=== PATIENT | male | born 1945 | race Caucasian/White ===

== ENCOUNTER 2022-12-05 09:00 | Outpatient (RCR) | payer MEDICARE, SELFPAY ==
--- NOTE | 2022-11-14 12:49 | PT.OPEX ---
PT [place] Outpatient Eval PT [facility] Outpatient Eval Start: 11/14/22 08:47 Freq: Status: Active Protocol: Document 11/14/22 08:48 ENM (Rec: 11/14/22 11:51 ENM [id number]) E-signed By Abigail Dye, DPT Physical Therapy Outpatient Evaluation Insurance Information Recert Due Date 02/06/23 Insurance Name Medicare B Medical Diagnosis unilateral primary osteoarthritis, left knee Treating Diagnosis left knee pain, decreased knee flexion, decreased ankle ROM, decreased quad and glute strength, impaired squat Referring MD Leon Subjective Subjective Patient presents to PT for complaint of left knee pain that has been present for 4 month. Had a cortisone injection which helped to relieve the pains for a bit but they came back. A week ago he started to wear a knee brace which has provided some pain relief. Most aggravating activity is going down the stairs. He is able to relieve some of the pains changing positions of the knee. Squatting and getting down into his bathtub is very painful. He is not able to bend his left knee enough to get his pants on. 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 Does wear custom inserts due to history of flat feet. PMHx: back surgery L4/5 Imaging: joint space narrowing peripheral osteophyte formation consistent with mild tricompartmental osteoarthritis. No acute osseous abnormalities. 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 Objective Other/Pertinent Objective ROM L knee 0-2-135 no pain R knee 0-2-135 hip flexion WNL B IR 25% limited B ER 10% limited B ankle DF closed chain 11 cm from wall L 4 R 4 PF L 63 R 62 strength: 30s STS 14 reps with soreness in L knee after 5x STS 10.18s hip flexors 4/5 B knee extensors L 4-/5 R 4/5 hip abductor 4-/5 B hip extensors 4-/5 B palpation/joint mobility: - for pains palpation along knee joint gait/balance: SLS able to hold on R for >10s , L able to hold 5-7s before LOB pressure felt in knee special tests: flat feet bilaterally less than 1 finger tip support with drop of navicular B squat patient leaning off L side to perform with B knee valgus present + for pain Elys limited on L side compared to R - for pain with varus or valgus stressing of the knee Assessment Assessment/Impression Patient is a 77 year old male presenting with 4 month history of left knee pain. Their primary complaint is of pain in the left knee with going down stairs, squatting and getting into the tub to take a bath. He has had some relief of symptoms with a cortisone injection as well as use of a knee brace but pain have not fully gone away. Upon assessment patients concordant pains brought on with repeated sit to stands, squatting and SLS. He has no pain with knee ROM or overpressure. Weakness noted in hip extensors and abductors with MMT. He has minimal arch support which contributes to knee valgus with squatting. No tenderness to palpation of knee joint line musculature. Saúl would greatly benefit from skilled PT to address impairments stated above in order to perform all functional mobility and recreational activities without significant discomfort or difficulty. Primary Functional Limitations squatting, going down stairs, bending to get into tub, putting on pants in standing Plan of Care Rehabilitation Potential Good Physical Therapy Goals In 6-8 visits: 1. Patient will be IND with HEP and self management of symptoms 2. Patient will be able to perform x5 squats with good form and no knee pain to demonstrate improvements in LE strength for getting in/out of tub 3. Patient will be able to descend the stairs with 3/10 or less knee pain in order to navigate home environment 4. Patient will improve L SLS to >10s to improve ability for putting on pants in standing Coordination/Communication With Referral Source Treatment Plan/Direct Interventions Gait Training,Ice/Cold/ Vasopneumatic,Joint Mobilization,Manual Therapy, Neuromuscular Re-ed,Self-Care/ Home Management,Therapeutic Activities,Therapeutic Exercises Frequency/Duration 1x a week for 7 weeks, as needed for 2 visits Patient Will Be Discharged From Therapy Completion of LTG(s), Independent w/HEP Evaluation Billing Untimed Code Treatment Minutes 35 Complexity Low Certification Information Initial Certification Date 11/14/22 Ending Certification Date 02/06/23 Provider Signature Shows Agreement With POC & Medical Necessity Physician Signature & Date Requested Please Sign/Date Here Physician Comment/Change : Physician NPI Number #
== END 2023-01-27 14:28 | disposition home or self-care (01) ==
PROVIDERS: PCP Family Medicine; Visit Provider Orthopaedic Surgery
DX: M17.12 Unilateral primary osteoarthritis, left knee (principal); M25.562 Pain in left knee; Z51.89 Encounter for other specified aftercare
CPT/HCPCS: 97110; 97161

== ENCOUNTER 2024-10-28 09:45 | Outpatient (RCR) | payer MEDICARE, SELFPAY | END 2025-02-11 08:58 | disposition home or self-care (01) | PROVIDERS: PCP Family Medicine; Visit Provider Family Medicine | DX: M54.50 Low back pain, unspecified (principal); M25.511 Pain in right shoulder; G89.29 Other chronic pain; Z51.89 Encounter for other specified aftercare | CPT/HCPCS: 97110; 97140; 97161; 97162; 97530; 97535 ==

== ENCOUNTER 2024-12-27 15:16 | Outpatient (CLI) | payer MEDICARE, SELFPAY ==
--- NOTE | 2024-12-27 15:30 | CRLHL7_ITS ---
For Patients: As a result of the 21st Century Cures Act, medical imaging exams and procedure reports are released immediately into your electronic medical record. You may view this report before your referring provider. If you have questions, please contact your health care provider. EXAM: MRI OF THE RIGHT SHOULDER, WITHOUT CONTRAST CLINICAL INDICATION: Weakness. PRIOR SURGERY: None reported. COMPARISON PLAIN FILMS: None available at time of interpretation. COMPARISON CROSS-SECTIONAL IMAGING STUDIES: None available at time of interpretation. TECHNICAL: Axial, sagittal oblique and coronal oblique T1, PD, PD FS and T2-weighted images. FINDINGS: GLENOHUMERAL JOINT: Effusion/Cyst: Physiologic quantity of joint fluid. No synovitis. No paralabral or periarticular cyst or ganglion. Humeral Head Articular Cartilage: Heterogeneous signal and some irregular grade 2 to grade 3 thinning. Glenoid Articular Cartilage: Uniform grade 2 thinning. Loose Bodies: No appreciable loose bodies. Capsule: No convincing evidence of adhesive capsulitis or capsular injury. OSSEOUS STRUCTURES: No fracture, marrow edema or marrow replacement process. CORACOACROMIAL ARCH: Acromial Morphology: Type 2 acromial morphology. No abnormal lateral or anterior downward sloping of the acromion. No os acromiale. No significant subacromial spur. Lateral acromial thickness is 5 mm. Acromiohumeral Interval: The acromiohumeral interval is adequately patent. At its narrowest, the interval measures 6 mm. No abnormal thickening of the coracoacromial ligament. Coracohumeral Interval: The coracohumeral interval is normal. At its narrowest, the coracohumeral interval measures 7 mm. Coracoid index is 15 mm. ACROMIOCLAVICULAR JOINT REGION: AC Joint: Mild capsular edematous hypertrophy. Few shallow subchondral edema and cyst foci in the clavicle. No joint space widening. No significant osteophyte. Ligaments: The coracoclavicular ligaments are intact. BURSAE: Subacromial-Subdeltoid: Thin line of fluid under the joint, acromion and anterior and lateral proximal deltoid. Subcoracoid: No abnormal bursal edema, thickening or bursal fluid. ROTATOR CUFF TENDONS AND MUSCLES AND DELTOID: Supraspinatus: Irregular small intermediate to high grade articular and intrasubstance tear posterior supraspinatus footplate. Pinpoint full-thickness extension not excluded. Width is not much greater than 3-4 mm in the sagittal anterior-posterior plane with greatest extent the coronal proximal to distal plane of 10-11 mm. Patchy hazy intermediate signal mild tendinosis in the surrounding intact tendon and foot plate. No atrophy or edema in the muscle. Infraspinatus: Patchy and strandy intermediate signal tendinosis without tear. No atrophy or edema in the muscle. Teres Minor: No tendinosis, tendon tearing, muscle atrophy or muscle edema. Subscapularis: Minor intermediate signal tendinosis articular margin distal tendon. No tear. No atrophy or edema in the muscle. Deltoid: No muscle atrophy or edema. BICEPS TENDON, LONG HEAD: The long head of the biceps tendon is appropriately positioned within the bicipital groove without tendon subluxation or dislocation. The biceps rohit mechanism is intact. The biceps anchor appears grossly intact. There is no significant tendinosis or tendon tearing. GLENOID LABRUM: Within the limitations of non-arthrographic technique, the superior labrum and biceps-labral complex are intact. The anteroinferior labrum is intact without Bankart or Bankart-variant labral tear. The remainder of the labrum is similarly intact. OTHER FINDINGS: There is no abnormality within the suprascapular or spinoglenoid notches nor within the quadrilateral space. No axillary adenopathy or mass. IMPRESSION: 1. Subacromial/subdeltoid bursitis. 2. Small irregular intermediate to high-grade articular tear supraspinatus distal tendon and footplate. Mild/moderate tendinosis infraspinatus and supraspinatus. Minimal tendinosis subscapularis. 3. Mild degenerative chondromalacia glenohumeral joint. 4. Minor osteoarthritis AC joint. Dictated by Norman Alcaraz MD @ 12/30/2024 8:50:26 AM (Electronically Signed)
== END 2024-12-27 15:17 | disposition home or self-care (01) ==
LOC: MRI 15:16
PROVIDERS: PCP Family Medicine; Visit Provider Family Medicine
DX: R29.898 Other symptoms and signs involving the musculoskeletal system (principal); M75.51 Bursitis of right shoulder; M75.101 Unspecified rotator cuff tear or rupture of right shoulder, not specified as traumatic; M94.211 Chondromalacia, right shoulder; M19.011 Primary osteoarthritis, right shoulder; M75.81 Other shoulder lesions, right shoulder
CPT/HCPCS: 73221